=== PATIENT | male | born 1975 | race Caucasian/White ===

== ENCOUNTER 2023-11-08 15:07 | Emergency (ER) | payer SELFPAY ==
[2023-11-08 15:11] VITALS: BP 112/83; PULSE 72; RESP 18; O2SAT 100; BMI 26.6
--- NOTE | 2023-11-08 15:18 | US_ITS ---
The [address] [address] Patient Name: SEBAS GARCIA MRN: [id number] date: 1975 Sex: M Assigned Patient Location: ER Current Patient Location: ER Accession/Order Number: [id number] Exam Date: 11/08/2023 15:20 Report Date: 11/08/2023 16:05 At the request of: BLAS PUGA Procedure: US scrotum EXAM: US scrotum HISTORY: Right testicle swollen, painful COMPARISON: Scrotal ultrasound 11/05/2011. TECHNIQUE: Grayscale and Doppler ultrasound of the scrotum/testicles. FINDINGS: The right testicle is homogeneous in appearance. There is normal Doppler flow. The testicle measures 4 x 2.5 x 2.9 cm. The right epididymis is heterogeneous in appearance. There is a 0.5 cm anechoic epididymal cyst. No increased vascularity of the right epididymis. Right-sided hydrocele and varicocele is present. The left testicle is homogeneous in appearance with normal color flow. The testicle measures 4.1 x 2.7 x 2.3 cm. Varicocele noted. The left epididymis is largely homogeneous in appearance and is without evidence of hypervascularity. US/US scrotum IMPRESSION: No sonographic evidence of torsion. Heterogeneous appearance of the right epididymis could suggest epididymitis. Moderate-sized right hydrocele. Bilateral varicoceles. 5 mm right epididymal cyst. Electronically authenticated by: MICHAEL CLEMONS Date: 11/08/2023 16:05
--- NOTE | 2023-11-08 15:19 | ED_ITS ---
Documented by User: SHIVAM Sauceda 11/08/23 16:14 HPI - Male Genitourinary General Chief complaint: Urogenital-Male Stated complaint: Testicular Pain Time Seen by Provider: 11/08/23 15:08 Source: patient Mode of arrival: walk-in Limitations: no limitations History of Present Illness HPI Narrative: Patient is a 48-year-old male who presents to the emergency department for right testicular swelling and pain that began in the last 2 to 3 days. He denies any mechanism of injury or trauma. He was diagnosed similarly with epididymitis over a year ago for same problem. He has had no fevers or vomiting. He denies any urinary symptoms, no drainage from the scrotum noted. No medications taken prior to arrival. Related Data Previous Rx's ?Medication ?Instructions ?Recorded doxycycline hyclate 100 mg tablet 100 mg PO BID 10 days #20 tabs 11/08/23 hydrocodone 5 mg-acetaminophen 325 1 tab PO Q6H PRN pain 3 days #12 11/08/23 mg tablet tabs ketorolac 10 mg tablet 10 mg PO TID PRN pain #10 tabs 11/08/23 Allergies Allergy/AdvReac Type Severity Reaction Status Date / Time latex Allergy Intermediate Hives Verified 11/08/23 15:11 Review of Systems ROS Constitutional Denies: fever or chills Ears, nose, mouth, and throat Denies: throat pain or nasal congestion Cardiovascular Denies: chest pain Respiratory Denies: shortness of breath or cough Gastrointestinal Denies: nausea or vomiting Musculoskeletal Denies: back pain Integumentary/Breast Denies: rash Neurological Denies: headache Endocrine Denies: excessive urination Hematologic/Lymphatic Denies: easy bruising or easy bleeding Exam Narrative Exam Narrative: Gen.: Awake, alert, in no distress Head: Normocephalic, atraumatic ENT: Moist mucous membranes Respiratory: No respiratory distress Gastrointestinal: Abdomen is soft, nondistended and nontender to palpation : Genital exam performed with Nba Mike RN At bedside throughout the duration of the exam. Patient is circumcised. Right testicle is slightly enlarged compared to the left and tender to palpation. No open wounds, redness or induration noted of the scrotum Extremities: Moves extremities equally Psych: Normal mood and affect Neuro: No focal neuro deficit Skin: Warm, dry, intact Constitutional Vital Signs, click to edit/add: Last Vital Signs Pulse 88 11/08/23 16:18 Resp 18 11/08/23 16:18 BP 118/88 11/08/23 16:18 Pulse Ox 98 11/08/23 16:18 O2 Del Method Room Air 11/08/23 15:11 Course Vital Signs Vital signs: Vital Signs Pulse Rate 72 11/08/23 15:11 Respiratory Rate 18 11/08/23 15:11 Blood Pressure 112/83 11/08/23 15:11 Pulse Oximetry 100 11/08/23 15:11 Oxygen Delivery Method Room Air 11/08/23 15:11 Pulse Rate 88 11/08/23 16:18 Respiratory Rate 18 11/08/23 16:18 Blood Pressure 118/88 11/08/23 16:18 Pulse Oximetry 98 11/08/23 16:18 Oxygen Delivery Method Room Air 11/08/23 15:11 MDM - Male Genitourinary MDM Narrative Medical decision making narrative: Specimen with no evidence of UTI, ultrasound shows no evidence of testicular torsion But the right epididymis has a heterogenous appearance the radiologist feels may represent epididymitis. Patient will be treated for epididymitis with doxycycline for home with a short course of analgesics and anti-inflammatories. Follow-up urology and return to the ER if symptoms change or worsen Medical Records Attestation: I reviewed the patient's medical records. Lab Data Attestation: I reviewed the patient's lab results. Labs: Lab Results 11/08/23 Range/Units 15:21 Urine Color Yellow (YELLOW) Urine Clarity Clear (CLEAR) Urine pH 7.0 (5.0-9.0) Ur Specific [place] 1.020 (1.005-1.025) Urine Protein Negative (NEG/TRACE) mg/dL Urine Glucose (UA) Negative (NEGATIVE) mg/dL Urine Ketones Negative (NEGATIVE) mg/dL Urine Occult Blood Negative (NEGATIVE) Urine Nitrite Negative (NEGATIVE) Urine Bilirubin Negative (NEGATIVE) Urine Urobilinogen 1.0 (0.2-1.0) EU/dL Ur Leukocyte Esterase Negative (NEGATIVE) Imaging Data US - abdomen: Attestation: I have reviewed the pertinent imaging results. Radiologist's impression: ITS Impressions Scrotum Ultrasound 11/08/23 15:18 IMPRESSION: No sonographic evidence of torsion. Heterogeneous appearance of the right epididymis could suggest epididymitis. Moderate-sized right hydrocele. Bilateral varicoceles. 5 mm right epididymal cyst. Electronically authenticated by: MICHAEL CLEMONS Date: 11/08/2023 16:05 Discharge Plan Discharge Stand Alone Forms: Portal Instructions Chief Complaint: Urogenital-Male Clinical Impression: Epididymitis, Pain in right testicle Patient Disposition: Home, Self-Care Time of Disposition Decision: 16:10 Condition: Good Prescriptions / Home Meds: New hydrocodone-acetaminophen 5-325 mg tablet 1 tab PO Q6H PRN (Reason: pain) 3 Days Qty: 12 0RF Rx Instructions: DX: N50.811 ketorolac 10 mg tablet 10 mg PO TID PRN (Reason: pain) Qty: 10 0RF doxycycline hyclate 100 mg tablet 100 mg PO BID 10 Days Qty: 20 0RF Print Language: Cambodian Instructions: Epididymitis (ED) Referrals: Salazar Negron MD [Physician] - 1 week Physician,Non-Staff, [Primary Care Provider] - 1 week Discharge Date/Time: 11/08/23 16:19 Documented by User: Caleb Grant 11/09/23 06:59 HPI - Male Genitourinary General Chief complaint: Urogenital-Male Stated complaint: Testicular Pain Time Seen by Provider: 11/08/23 15:08 Related Data Previous Rx's ?Medication ?Instructions ?Recorded doxycycline hyclate 100 mg tablet 100 mg PO BID 10 days #20 tabs 11/08/23 hydrocodone 5 mg-acetaminophen 325 1 tab PO Q6H PRN pain 3 days #12 11/08/23 mg tablet tabs ketorolac 10 mg tablet 10 mg PO TID PRN pain #10 tabs 11/08/23 Allergies Allergy/AdvReac Type Severity Reaction Status Date / Time latex Allergy Intermediate Hives Verified 11/08/23 15:11 Exam Constitutional Vital Signs, click to edit/add: Last Vital Signs Pulse 88 11/08/23 16:18 Resp 18 11/08/23 16:18 BP 118/88 11/08/23 16:18 Pulse Ox 98 11/08/23 16:18 O2 Del Method Room Air 11/08/23 15:11 Course Vital Signs Vital signs: Vital Signs Pulse Rate 72 11/08/23 15:11 Respiratory Rate 18 11/08/23 15:11 Blood Pressure 112/83 11/08/23 15:11 Pulse Oximetry 100 11/08/23 15:11 Oxygen Delivery Method Room Air 11/08/23 15:11 Pulse Rate 88 11/08/23 16:18 Respiratory Rate 18 11/08/23 16:18 Blood Pressure 118/88 11/08/23 16:18 Pulse Oximetry 98 11/08/23 16:18 Oxygen Delivery Method Room Air 11/08/23 15:11 MDM - Male Genitourinary MDM Narrative Medical decision making narrative: Specimen with no evidence of UTI, ultrasound shows no evidence of testicular torsion But the right epididymis has a heterogenous appearance the radiologist feels may represent epididymitis. Patient will be treated for epididymitis with doxycycline for home with a short course of analgesics and anti-inflammatories. Follow-up urology and return to the ER if symptoms change or worsen For this patient encounter I reviewed the mid-level provider?s documentation, medical decision-making and treatment plan, and I personally spent time with this patient. Shared APC visit, physician attestation: [id number]: The visit was performed by both a physician and an APC. I performed all aspects of MDM as documented. - JHay, DO Lab Data Labs: Lab Results 11/08/23 Range/Units 15:21 Urine Color Yellow (YELLOW) Urine Clarity Clear (CLEAR) Urine pH 7.0 (5.0-9.0) Ur Specific [place] 1.020 (1.005-1.025) Urine Protein Negative (NEG/TRACE) mg/dL Urine Glucose (UA) Negative (NEGATIVE) mg/dL Urine Ketones Negative (NEGATIVE) mg/dL Urine Occult Blood Negative (NEGATIVE) Urine Nitrite Negative (NEGATIVE) Urine Bilirubin Negative (NEGATIVE) Urine Urobilinogen 1.0 (0.2-1.0) EU/dL Ur Leukocyte Esterase Negative (NEGATIVE) Imaging Data US - abdomen: Radiologist's impression: ITS Impressions Scrotum Ultrasound 11/08/23 15:18
[2023-11-08] MEDS: HYDROCODONE/ACET 5-325 MG TABLET 1 TAB PO (15:27)
[2023-11-08 15:35] LABS: Bilirubin Urine NEGATIVE (NEGATIVE); Blood Urine NEGATIVE (NEGATIVE); Clarity Urine CLEAR (CLEAR); Color Urine YELLOW (YELLOW); Glucose Urine UA NEGATIVE (NEGATIVE); Ketones Urine NEGATIVE (NEGATIVE); Leukocyte Esterase Urine NEGATIVE (NEGATIVE); Nitrite Urine NEGATIVE (NEGATIVE); Protein Urine NEGATIVE (NEG/TRACE)
[2023-11-08 15:37] LABS: Urine Microscopic Indicated NO
[2023-11-08 16:18] VITALS: BP 118/88; PULSE 88; RESP 18; O2SAT 98
== END 2023-11-08 16:19 | disposition home or self-care (01) ==
PROVIDERS: Physician Assistant; Emergency Provider Emergency Medicine
DX: N45.1 Epididymitis (principal); N50.3 Cyst of epididymis; I86.1 Scrotal varices; N50.811 Right testicular pain
CPT/HCPCS: 76870; 81003; 99284

== ENCOUNTER 2024-03-19 12:56 | Emergency (ER) | payer OTHER, SELFPAY ==
[2024-03-19 13:01] VITALS: BP 102/74; PULSE 61; TEMP 36.6; O2SAT 98; BMI 26.6
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
== END 2024-03-19 13:41 | disposition home or self-care (01) ==
PROVIDERS: Emergency Provider Student in an Organized Health Care Education/Training Program
DX: T22.012A Burn of unspecified degree of left forearm, initial encounter (principal); X19.XXXA Contact with other heat and hot substances, initial encounter
CPT/HCPCS: 99283

== ENCOUNTER 2024-10-01 16:02 | Emergency (ER) | payer OTHER, SELFPAY ==
[2024-10-01 16:18] VITALS: BP 102/72; PULSE 81; TEMP 36.5; O2SAT 97; BMI 25.8
--- NOTE | 2024-10-01 16:26 | US_ITS ---
[address] [address] Patient Name: SEBAS GARCIA MRN: [id number] date: 1975 Sex: M Assigned Patient Location: ER Current Patient Location: ER Accession/Order Number: [id number] Exam Date: 10/01/2024 16:55 Report Date: 10/01/2024 18:18 At the request of: ERIK RASMUSSEN Procedure: US scrotum doppler SCROTAL ULTRASOUND. HISTORY: Pain. COMPARISON: None. TECHNIQUE: High frequency grayscale and color Doppler sonographic imaging. FINDINGS: Right testis: 3.8 x 2.1 x 2.8 cm. Epididymis: Mildly enlarged epididymis with heterogeneous appearance. There is minimal relative increase color Doppler flow. There is a simple 5 mm cyst. Hydrocele: Small to moderate size hydrocele.. Varicocele None. Masses: None. Vascularity: Normal arterial blood flow. Left testis: 4.2 x 2.3 x 2.7 cm. Epididymis: Normal. Hydrocele: Trace. Varicocele None. Masses: None. Vascularity: Normal arterial blood flow. Additional Findings: There is mild right scrotal wall thickening. US/US scrotum doppler IMPRESSION: 1. Findings are suspicious for right epididymitis. 2. Unremarkable testes. 3. Small to moderate-sized right hydrocele. 4. Mild right scrotal wall thickening, which is nonspecific. Electronically authenticated by: RALPH DIETZ Date: 10/01/2024 18:18
--- OUTSIDE RECORDS SUMMARY | 2024-10-01 16:27 | XMS_ITS | CCD ---
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 [address] [place] [address] 86036 ALP [Catalytic activity/Vol] 80 U/L Normal 39-130 [facility] Comment on above: Performed By: #### C BCA, CMP, 6873-4, #### [facility] ([id number]) [address] [place] [address] 17731 ALT [Catalytic activity/Vol] 16 U/L Normal 0-40 [facility] Comment on above: Performed By: #### C BCA, CMP, 73-4, #### [facility] ([id number]) [address] [place] [address] 95766 Anion gap [Moles/Vol] 9 mmol/L Normal 5-15 [facility] Comment on above: Performed By: #### C BCA, CMP, 6873-4, 07679-1 #### [facility] ([id number]) [address] [place] [address] 14298 AST [Catalytic activity/Vol] 19 U/L Normal 0-41 [facility] Comment on above: Performed By: #### C BCA, CMP, 73-4, 68163-2 #### [facility] ([id number]) [address] [place] [address] 88490 Bilirubin [Mass/Vol] 0.5 mg/dL Normal 0.3-1.2 [facility] Comment on above: Performed By: #### C BCA, CMP, 73-4, #### [facility] ([id number]) [address] [place] [address] 23274 Calcium [Mass/Vol] 9.5 mg/dL Normal 8.5-10.5 [facility] Comment on above: Performed By: #### C NASIM CASTREJON, 6873-4, 87535-9 #### [facility] ([id number]) [address] [place] [address] 26017 Chloride [Moles/Vol] 106 mmol/L Normal 98-109 [facility] Comment on above: Performed By: #### C NASIM CASTREJON, 73-, 04221-2 #### [facility] ([id number]) [address] [place] [address] 37108 CO2 [Moles/Vol] 26 mmol/L Normal 22-32 [facility] Comment on above: Performed By: #### C NASIM CASTRJEON, 6872-11, 75750-8 #### [facility] ([id number]) [address] [place] [address] 84845 Creatinine [Mass/Vol] 0.96 mg/dL Normal 0.70-1.20 [facility] Comment on above: Result Comment: METH OD TRACEABLE TO IDMS STANDARD Performed By: #### C NASIM CASTREJON, 73-4, 28073-2 #### [facility] ([id number]) [address] [place] [address] 80274 eGFR (CKD-EPI) NON-RACE DEPENDENT >90 Normal >59 [facility] Comment on above: Result Comment: Reported eGFR is based on the CKD-EPI 2020 equation that does not use a race coefficient. Performed By: #### C NASIM CASTREJON, 6873-4, 81838-9 #### [facility] ([id number]) [address] [place] [address] 39222 Glucose [Mass/Vol] 165 mg/dL High 65-99 [facility] Comment on above: Performed By: #### C NASIM CASTREJON, 73-, 55850-3 #### [facility] ([id number]) [address] [place] [address] 59053 Potassium [Moles/Vol] 4.1 mmol/L Normal 3.5-5.0 [facility] Comment on above: Performed By: #### C NASIM CASTREJON, 73, 11996-3 #### [facility] ([id number]) [address] [place] [address] 05010 Protein [Mass/Vol] 5.9 g/dL Low 6.0-8.0 [facility] Comment on above: Performed By: #### C NASIM CASTREJON, 6872-11, 61280-4 #### [facility] ([id number]) [address] [place] [address] 89519 Sodium [Moles/Vol] 141 mmol/L Normal 134-146 [facility] Comment on above: Performed By: #### C NASIM CASTREJON, 6872-11, 65334-0 #### [facility] ([id number]) [address] [place] [address] 21924 Urea nitrogen [Mass/Vol] 15 mg/dL Normal 5-23 [facility] Comment on above: Performed By: #### C NASIM CASTREJON, 73, 07734-2 #### [facility] ([id number]) [address] [place] [address] 08360 Glucose Glucometer (BldC) [M ass/Vol]on 11-16-2023 Glucose [Mass/Vol] 158 mg/dL High 65-99 [facility] MAGNESIUMon 11-16-2023 Magnesium [Mass/Vol] 1.5 mg/dL Low 1.8-2.6 [facility] Comment on above: Performed By: #### C NASIM CASTREJON, 6873-, 30988-0 #### [facility] ([id number]) [address] [place] [address] [place] [address] BASIC METABOLIC PANLon 11-14 Anion gap [Moles/Vol] 6 mmol/L Normal 5-15 [facility] Comment on above: Performed By: #### C CASH CMP, 6873-4, 60752-9 #### [facility] ([id number]) [address] [place] [address] 83382 Calcium [Mass/Vol] 9.1 mg/dL Normal 8.5-10.5 [facility] Comment on above: Performed By: #### C CASH, CMP, 73-, 43437-6 #### [facility] ([id number]) [address] [place] [address] 47550 Chloride [Moles/Vol] 110 mmol/L High 98-109 [facility] Comment on above: Performed By: #### C CASH CMP, 73, 49019-5 #### [facility] ([id number]) [address] [place] [address] 81977 CO2 [Moles/Vol] 25 mmol/L Normal 22-32 [facility] Comment on above: Performed By: #### C CASH, CMP, 73-, 53593-9 #### [facility] ([id number]) [address] [place] [address] 85792 Creatinine [Mass/Vol] 1.04 mg/dL Normal 0.70-1.20 [facility] Comment on above: Result Comment: METH OD TRACEABLE TO IDMS STANDARD Performed By: #### C CASH, CMP, 6873-4, 46609-9 #### [facility] ([id number]) [address] [place] [address] 98025 GFR/1.73 sq M.predicted among non-blacks MDRD (S/P/Bld) [Vol rate/Area] 89 mL/min/{1.73_m2} Normal >59 [facility] Comment on above: Result Comment: Reported eGFR is based on the CKD-EPI 2020 equation that does not use a race coefficient. Performed By: #### C NASIM CASTREJON, 6873-, 94305-8 #### [facility] ([id number]) [address] [place] [address] 48155 Glucose [Mass/Vol] 95 mg/dL Normal 65-99 [facility] Comment on above: Performed By: #### C NASIM CASTREJON, 73-, #### [facility] ([id number]) [address] [place] [address] 83645 Potassium [Moles/Vol] 3.7 mmol/L Normal 3.5-5.0 [facility] Comment on above: Performed By: #### C NASIM CASTREJON, 73, #### [facility] ([id number]) [address] [place] [address] 49345 Sodium [Moles/Vol] 141 mmol/L Normal 134-146 [facility] Comment on above: Performed By: #### C NASIM CASTREJON, 73, 05944-9 #### [facility] ([id number]) [address] [place] [address] 46992 Urea nitrogen [Mass/Vol] 13 mg/dL Normal 5-23 [facility] Comment on above: Performed By: #### C NASIM CASTREJON, 73-, 02459-3 #### [facility] ([id number]) [address] [place] [address] 45789 CBC AND AUTO DIFFon 11-15-19 24 ABSOLUTE BASOPHIL 0.1 X10E9/L Normal 0.0-0.2 [facility] Comment on above: Performed By: #### N UM #### [facility] ([id number]) [address] [place] [address] 04407 ABSOLUTE NEUTROPHIL 6.7 X10E9/L High 1.5-6.6 [facility] Comment on above: Performed By: #### N UM #### [facility] ([id number]) [address] [place] [address] 07738 Basophils/100 WBC (Bld) 0.6 % Normal [facility] Comment on above: Performed By: #### N UM #### [facility] ([id number]) [address] [place] [address] 31929 Eosinophils (Bld) [#/Vol] 0.4 10*3/uL Normal 0.0-0.4 [facility] Comment on above: Performed By: #### N UM #### [facility] ([id number]) [address] [place] [address] 95868 Eosinophils/100 WBC (Bld) 3.5 % Normal [facility] Comment on above: Performed By: #### N UM #### [facility] ([id number]) [address] [place] [address] 29818 Erythrocyte distribution width (RBC) [Ratio] 14.1 % Normal 11.5-15.0 [facility] Comment on above: Performed By: #### N UM #### [facility] ([id number]) [address] [place] [address] 37477 Hematocrit (Bld) [Volume fraction] 42.2 % Normal 39-49 [facility] Comment on above: Performed By: #### N UM #### [facility] ([id number]) [address] [place] [address] 38744 Hemoglobin (Bld) [Mass/Vol] 14.2 g/dL Normal 13.0-17.0 [facility] Comment on above: Performed By: #### N UM #### [facility] ([id number]) [address] [place] [address] 78783 Lymphocytes (Bld) [#/Vol] 3.2 10*3/uL Normal 1.0-3.5 [facility] Comment on above: Performed By: #### N UM #### [facility] ([id number]) [address] [place] [address] 33617 Lymphocytes/100 WBC (Bld) 28.5 % Normal [facility] Comment on above: Performed By: #### N UM #### [facility] ([id number]) [address] [place] [address] 23853 MCH (RBC) [Entitic mass] 29.8 pg Normal 27-34 [facility] Comment on above: Performed By: #### N UM #### [facility] ([id number]) [address] [place] [address] 09450 MCHC (RBC) [Mass/Vol] 33.6 g/dL Normal 32-36 [facility] Comment on above: Performed By: #### N UM #### [facility] ([id number]) [address] [place] [address] 47389 MCV (RBC) [Entitic vol] 89 fL Normal 80-100 [facility] Comment on above: Performed By: #### N UM #### [facility] ([id number]) [address] [place] [address] 54222 Monocytes (Bld) [#/Vol] 1.0 10*3/uL High 0-0.9 [facility] Comment on above: Performed By: #### N UM #### [facility] ([id number]) [address] [place] [address] 37288 Monocytes/100 WBC (Bld) 8.5 % Normal [facility] Comment on above: Performed By: #### N UM #### [facility] ([id number]) [address] [place] [address] 95282 Neutrophils/100 WBC (Bld) 58.9 % Normal [facility] Comment on above: Performed By: #### N UM #### [facility] ([id number]) [address] [place] [address] 95780 Platelet mean volume (Bld) [Entitic vol] 8.1 fL Normal 7-12 [facility] Comment on above: Performed By: #### N UM #### [facility] ([id number]) [address] [place] [address] 04677 Platelets (Bld) [#/Vol] 268 10*3/uL Normal 150-450 [facility] Comment on above: Performed By: #### N UM #### [facility] ([id number]) [address] [place] [address] 52830 RBC COUNT 4.76 X10E12/L Normal 4.10-5.70 [facility] Comment on above: Performed By: #### N UM #### [facility] ([id number]) [address] [place] [address] 38404 WBC (Bld) [#/Vol] 11.4 10*3/uL High 4.0-11.0 [facility] Comment on above: Performed By: #### N UM #### [facility] ([id number]) [address] [place] [address] BRAIN WO CONT STROKE ALER Ton 11-15-2023 CT BRAIN WO CONT STROKE ALERT CT BRAIN WO CONT STROKE ALERT History: Left-sided weakness and facial tear. Suspected acute stroke. NONCONTRAST HEAD CT Comparison: 09/24/2007 Findings: There is no evidence of recent hemorrhage or other acute intracranial abnormalities. No other focal intracranial findings of any nature are depicted. Ventricles and CSF spaces are bilaterally symmetric and within normal limits. Feliciano-white matter differentiation is normal throughout. No abnormalities are displayed on bone windows. IMPRESSION: Normal noncontrast head CT. All CT scans at this facility use dose modulation, iterative reconstruction, and/or weight based dosing when appropriate to reduce radiation dose to as low as reasonably achievable. 6 Finalized by Ilya Sharma MD on 11/15/2023 8:13 AM Normal [facility] CT CTA ABD AND PELVISon 10-19 CT CTA ABD AND PELVIS CT CTA ABD AND PELVIS History: Chest pain. Concern with possible aortic dissection, aneurysm. Exam/Technique: CTA of the abdomen, and pelvis. Volume rendered 3D maximum intensity projection reconstructions constructed under concurrent physician supervision on a independent workstation and reviewed for purposes of evaluation of the abdominal aorta and its branches. Comparison: 06/29/2021 contrast-enhanced CT of the abdomen and pelvis Findings: No evidence of dissection of the abdominal aorta or iliac arteries. The abdominal aorta is of normal caliber throughout its length with mild atherosclerotic plaquing in the infrarenal aorta, but no evidence of focal stenoses or aneurysms. Both common and external iliac arteries, and both common femoral arteries are of normal caliber throughout without significant focal stenoses or aneurysms. There is good flow through the celiac axis and SMA and their branches without focal stenoses. A patent PHIL is demonstrated. A single good caliber renal artery supplies each kidney without evidence of focal stenoses. Minor anatomic variant with a small accessory left hepatic artery arising directly from the abdominal aorta No active pulmonary disease is displayed in the lung bases. No significant abnormalities are displayed in the liver, spleen, pancreas, adrenal glands, or kidneys. Status post cholecystectomy, unchanged. No gross abnormalities of the urinary bladder are displayed. IMPRESSION: No acute abnormalities demonstrated. [address] scans at this facility use dose modulation, iterative reconstruction, and/or weight based dosing when appropriate to reduce radiation dose to as low as reasonably achievable. 6 Finalized by Ilya Sharma MD on 11/15/2023 8:50 AM Normal [facility] CT CTA CAROTIDon 11-15-[address] CTA CAROTID CTA carotids History: Left-sided weakness, facial droop, TIA Contrast: 100 mL Omnipaque 350 Comparison: None Technique: CT angiogram performed following intravenous administration of nonionic intravenous contrast. Coronal and sagittal and 3-D volume rendered maximum intensity projection images generated and reviewed under concurrent physician supervision. Automated exposure control utilized. The [place] Symptomatic Carotid Endarterectomy Trial (NASCET) method for a calculated in the degree of stenosis was utilized for stenosis measurements. Findings: Visible portion of the thoracic aorta is normal in caliber with no atherosclerotic disease. Typical 3 vessel arch with no ostial stenosis of the great vessels. The right common, internal and external carotid arteries are patent with no aneurysm, dissection or hemodynamically significant stenosis. No significant atherosclerotic disease. The left common, internal and external carotid arteries are patent with no aneurysm, dissection or hemodynamically significant stenosis. No significant atherosclerotic disease. The vertebral arteries are codominant. Both vertebral arteries are patent with no aneurysm, large vessel dissection or significant stenosis. No significant atherosclerotic disease. IMPRESSION: 1. No acute vascular abnormality or significant stenosis by NASCET criteria. All CT scans at this facility use dose modulation, iterative reconstruction, and/or weight based dosing when appropriate to reduce radiation dose to as low as reasonably achievable. 5 Finalized by Pranav Lynn MD on 11/15/2023 8:31 AM Normal [facility] CT CTA CHESTon 11-15-[address] CTA CHEST History: Chest pain. Suspected acute aortic syndrome/dissection Exam/Technique: CTA imaging of the chest is performed with bolus IV contrast with multiplanar reconstructions provided. Volume rendered 3 -D Maximum intensity projection reconstructions constructed under concurrent physician supervision on an independent workstation and reviewed for purposes of evaluation of the thoracic aorta Comparison: None Findings: No pulmonary emboli demonstrated. The thoracic aorta appears normal. No coronary artery calcification is demonstrated and the heart size appears normal. . No hilar or mediastinal mass lesions or other significant mediastinal abnormalities are displayed. There is no evidence of infiltrates, noncalcified nodules, or other active pulmonary disease. No pleural abnormalities are demonstrated. No abnormalities are displayed in the portions of upper abdominal organs included. IMPRESSION: Normal contrast enhanced chest CT, with no evidence of thoracic aorta abnormalities, or other acute abnormalities. All CT scans at this facility use dose modulation, iterative reconstruction, and/or weight based dosing when appropriate to reduce radiation dose to as low as reasonably achievable. 6 Finalized by Ilya Sharma MD on 11/15/2023 8:45 AM Normal [facility] CT CTA HEADon 11-15-[address] CT[address] HEAD CT angiogram of the head, 11/15/2023 Clinical History: Left-sided weakness, facial droop, TIA Comparison: CT brain 11/15/2023 Contrast: 100 mL Omnipaque 350 Technique: Multidetector CT angiogram performed through the [place] using 3D reconstructions and source images displayed on a PACS workstation and reviewed by the radiologist. Automatic exposure control (AEC) was utilized. Arterial blood flow was measured to assist the stroke clinical team in the diagnosis of large vessel occlusion in patients undergoing screening for acute ischemic stroke using Rapid AI software when clinically indicated. Findings: The bilateral intracranial internal carotid arteries are patent with no aneurysm, dissection or hemodynamically significant stenosis. No significant atherosclerotic disease. Bilateral anterior and middle cerebral arteries are patent with no aneurysm or significant stenosis demonstrated. Bilateral vertebral arteries and basilar artery are patent with no aneurysm, dissection or significant stenosis. Bilateral posterior cerebral arteries are patent with no aneurysm or significant stenosis. Patent bilateral posterior communicating arteries are patent. Dural venous sinuses are patent. No vascular malformation. No pathologic contrast enhancement. IMPRESSION: 1. No acute vascular abnormality. All CT scans at this facility use dose modulation, iterative reconstruction, and/or weight based dosing when appropriate to reduce radiation dose to as low as reasonably achievable. 5 Finalized by Pranav Lynn MD on 11/15/2023 8:46 AM Normal [facility] ETHANOLon 11-15-2023 Ethanol [Mass/Vol] mg/dL Normal 0.00-0.08 [facility] Comment on above: Result Comment: This report is intended for use in clinical monitoring or management of patients. Performed By: #### C NASIM CASTREJON, 6873-4, 30436-2 #### [facility] ([id number]) [address] [place] [address] 35956 Glucose Glucometer (BldC) [M ass/Vol]on 11-15-2023 Glucose [Mass/Vol] 94 mg/dL Normal 65-99 [facility] Glucose [Mass/Vol] 68 mg/dL Normal 65-99 [facility] Glucose [Mass/Vol] 110 mg/dL High 65-99 [facility] HGB A1C (GLYCO-HGB)on 2023 Glucose [Mass/Vol] 192 mg/dL Normal [facility] Comment on above: Performed By: #### C NASIM CASTREJON, 6873-49 #### [facility] ([id number]) [address] [place] [address] 63564 HbA1c (Bld) [Mass fraction] 8.3 % High 4.4-5.6 [facility] Comment on above: Result Comment: NOTE ADA Guidelines Result HgbA1c Normal : less than 5.7 % Prediabetes : 5.7 % to 6.4 % Diabetes : > 6.4 % Use with caution in patients with abnormal hemoglobin variants as the half-life of red blood cells and in vivo glycation rates are affected. Performed By: #### C NASIM CASTREJON, 68739 #### [facility] ([id number]) [address] [place] [address] 49531 LIVER PANELon 11-15-2023 Albumin [Mass/Vol] 3.9 g/dL Normal 3.2-5.3 [facility] Comment on above: Performed By: #### C NASIM CASTREJON, 739 #### [facility] ([id number]) [address] [place] [address] 35444 ALP [Catalytic activity/Vol] 88 U/L Normal 39-130 [facility] Comment on above: Performed By: #### C NASIM CASTREJON, 739 #### [facility] ([id number]) [address] [place] [address] 02733 ALT [Catalytic activity/Vol] 19 U/L Normal 0-40 [facility] Comment on above: Performed By: #### C CASH CMP, 6873-49 #### [facility] ([id number]) [address] [place] [address] 62830 AST [Catalytic activity/Vol] 21 U/L Normal 0-41 [facility] Comment on above: Performed By: #### C CASH, CMP, 6873-4, 36862-5 #### [facility] ([id number]) [address] [place] [address] 83246 Bilirubin [Mass/Vol] 0.9 mg/dL Normal 0.3-1.2 [facility] Comment on above: Performed By: #### C CASH, CMP, 6873-, 33458-3 #### [facility] ([id number]) [address] [place] [address] 42791 Bilirubin.direct [Mass/Vol] 0.1 mg/dL Normal 0.0-0.4 [facility] Comment on above: Performed By: #### C CASH, CMP, 73, 66303-4 #### [facility] ([id number]) [address] [place] [address] 78457 Protein [Mass/Vol] 6.7 g/dL Normal 6.0-8.0 [facility] Comment on above: Performed By: #### C CASH, CMP, 734, 28997-3 #### [facility] ([id number]) [address] [place] [address] 46630 Lactate (P traci) [Moles/Vol]o n 11-15-2023 LACTATE W/REFLEX 1.7 mmol/L Normal 0.4-2.0 [facility] Comment on above: Result Comment: Result did not trigger repeat Lactate, re-order if needed. Performed By: #### C CASH, CMP, 6873-4, 75801-2 #### [facility] ([id number]) [address] [place] [address] 67772 Lipid 1996 panelon 4 Cholesterol [Mass/Vol] 109 mg/dL Low 150-200 Pr [facility] Comment on above: Performed By: #### C BCA, CMP, 6873-4, 26776-2 #### [facility] ([id number]) [address] [place] [address] 66663 Cholesterol in HDL [Mass/Vol] 42 mg/dL Normal >39 [facility] Comment on above: Result Comment: HDL <40 mg/dL - High Risk HDL > or = 40mg/dL- Desirable HDL >60 mg/dL - Negative Risk Performed By: #### C CASH, CMP, 6873-4, 43155-2 #### [facility] ([id number]) [address] [place] [address] 78753 Cholesterol in LDL [Mass/Vol] 52 mg/dL Normal <130 [facility] Comment on above: Result Comment: LDL <100 mg/dL - Desirable LDL >160 mg/dL - High Risk Performed By: #### Kay CASTREJON CMP, 6873-4, 05561-9 #### [facility] ([id number]) [address] [place] [address] 07004 Cholesterol in VLDL [Mass/Vol] 15 mg/dL Normal 0-30 [facility] Comment on above: Performed By: #### Kay CASTREJON CMP, 6873-4, 64997-5 #### [facility] ([id number]) [address] [place] [address] 96620 CHOLESTEROL:HDL 2.6 Normal 1.0-5.0 [facility] Comment on above: Performed By: #### Kay CASTREJON CMP, 6873-4, 55154-8 #### [facility] ([id number]) [address] [place] [address] 24809 Triglyceride [Mass/Vol] 77 mg/dL Normal 27-150 [facility] Comment on above: Performed By: #### C [facility], [facility], 6873-4, 40024-5 #### [facility] ([id number]) [address] [place] [address] 03424 MR BRAIN W WO CONTon 024 MR BRAIN W WO CONT MR BRAIN W WO CONT Clinical history: Left-sided weakness. TIA. TECHNIQUE: Multiplanar multisequence imaging of the brain was performed before and after the intravenous administration of 16.8 mL ProHance gadolinium contrast material. COMPARISON: There are no prior MRIs for comparison. Unenhanced CT of the brain 11/15/2023 is available. FINDINGS: There are multiple punctate and patchy foci of increased signal intensity on the T2 and FLAIR images within subcortical and to a lesser extent periventricular white matter of the supratentorial brain. These findings are nonspecific. Brain otherwise appears within normal limits in morphology and signal characteristics. There is no intracranial mass nor mass effect. Ventricular system appears within normal limits. There is no restricted diffusion to suggest acute nor subacute infarct. There are no signal abnormalities present to suggest parenchymal nor extra-axial hemorrhage. There is no pathologic parenchymal nor leptomeningeal gadolinium enhancement. IMPRESSION: 1. No intracranial mass, hemorrhage, infarct, nor other acute finding. 2. Small white matter lesions throughout the supratentorial brain are nonspecific. Findings may reflect sequelae of microvascular ischemia. Other etiologies such as migrainous change, demyelinating disease, or vasculitis not excluded. 5 Finalized by Pj Wilson MD on 11/15/2023 12:11 PM Normal [facility] PROTIME AND INRon 11-15-2023 INR Coag (PPP) [Relative time] 1.0 {INR} Normal 0.8-1.1 [facility] Comment on above: Performed By: #### N UM #### [facility] ([id number]) [address] [place] [address] 57767 PT Coag (PPP) [Time] 11.7 s Normal 9.8-13.2 [facility] Comment on above: Result Comment: NEW REFERENCE RANGE Performed By: #### N UM #### [facility] ([id number]) [address] [place] [address] 66288 THYROID PROFILEon 11-15-2023 Free T4 [Mass/Vol] 1.02 ng/dL Normal 0.61-1.60 [facility] Comment on above: Performed By: #### C CASH CMP, 6873-4, 09534-3 #### [facility] ([id number]) [address] [place] [address] 29921 TSH 1.53 uIU/mL Normal 0.49-4.67 [facility] Comment on above: Performed By: #### C CASH CMP, 73-4, 07843-3 #### [facility] ([id number]) [address] [place] [address] 21886 TROPONIN Ion 11-15-2023 Troponin I.cardiac [Mass/Vol] 0.01 ng/mL Normal 0.00-0.04 [facility] Comment on above: Performed By: #### C CASH CMP, 73-4, 70984-0 #### [facility] ([id number]) [address] [place] [address] 41320 Troponin I.cardiac [Mass/Vol] ng/mL Normal 0.00-0.04 [facility] Comment on above: Performed By: #### Kay CASTREJON CMP, 73-4, 77913-3 #### [facility] ([id number]) [address] [place] [address] 30135 Troponin I.cardiac [Mass/Vol] 0.02 ng/mL Normal 0.00-0.04 [facility] Comment on above: Performed By: #### Kay CASTREJON, CMP, 6873-, 99186-1 #### [facility] ([id number]) [address] [place] [address] 54633 aPTT Coag (PPP) [Time]on aPTT Coag (Bld) [Time] 32 s Normal 26-37 [facility] Comment on above: Result Comment: NEW REFERENCE RANGE Performed By: #### N UM #### [facility] ([id number]) [address] [place] [address] 55609 BASIC METABOLIC PANLon 11-06 Anion gap [Moles/Vol] 4 mmol/L Low 5-15 [facility] Comment on above: Performed By: #### N UM #### [facility] ([id number]) [address] [place] [address] 56336 Calcium [Mass/Vol] 9.5 mg/dL Normal 8.5-10.5 [facility] Comment on above: Performed By: #### N UM #### [facility] ([id number]) [address] [place] [address] 72453 Chloride [Moles/Vol] 108 mmol/L Normal 98-109 [facility] Comment on above: Performed By: #### N UM #### [facility] ([id number]) [address] [place] [address] 30023 CO2 [Moles/Vol] 28 mmol/L Normal 22-32 [facility] Comment on above: Performed By: #### N UM #### [facility] ([id number]) [address] [place] [address] 15395 Creatinine [Mass/Vol] 0.95 mg/dL Normal 0.70-1.20 [facility] Comment on above: Result Comment: METH OD TRACEABLE TO IDMS STANDARD Performed By: #### N UM #### [facility] ([id number]) [address] [place] [address] 43488 eGFR (CKD-EPI) NON-RACE DEPENDENT >90 Normal >59 [facility] Comment on above: Result Comment: Reported eGFR is based on the CKD-EPI 2020 equation that does not use a race coefficient. Performed By: #### N UM #### [facility] ([id number]) [address] [place] [address] 92087 Glucose [Mass/Vol] 81 mg/dL Normal 65-99 [facility] Comment on above: Performed By: #### N UM #### [facility] ([id number]) [address] [place] [address] 07795 Potassium [Moles/Vol] 3.8 mmol/L Normal 3.5-5.0 [facility] Comment on above: Performed By: #### N UM #### [facility] ([id number]) [address] [place] [address] 31014 Sodium [Moles/Vol] 140 mmol/L Normal 134-146 [facility] Comment on above: Performed By: #### N UM #### [facility] ([id number]) [address] [place] [address] 91430 Urea nitrogen [Mass/Vol] 13 mg/dL Normal 5-23 [facility] Comment on above: Performed By: #### N UM #### [facility] ([id number]) [address] [place] [address] 84145 CBC AND AUTO DIFFon 11-07-19 24 ABSOLUTE BASOPHIL 0.1 X10E9/L Normal 0.0-0.2 [facility] Comment on above: Performed By: #### N UM #### [facility] ([id number]) [address] [place] [address] 53971 ABSOLUTE NEUTROPHIL 4.8 X10E9/L Normal 1.5-6.6 [facility] Comment on above: Performed By: #### N UM #### [facility] ([id number]) [address] [place] [address] 33305 Basophils/100 WBC (Bld) 1.0 % Normal [facility] Comment on above: Performed By: #### N UM #### [facility] ([id number]) [address] [place] [address] 27555 Eosinophils (Bld) [#/Vol] 0.3 10*3/uL Normal 0.0-0.4 [facility] Comment on above: Performed By: #### N UM #### [facility] ([id number]) [address] [place] [address] 00198 Eosinophils/100 WBC (Bld) 3.1 % Normal [facility] Comment on above: Performed By: #### N UM #### [facility] ([id number]) [address] [place] [address] 50016 Erythrocyte distribution width (RBC) [Ratio] 13.7 % Normal 11.5-15.0 [facility] Comment on above: Performed By: #### N UM #### [facility] ([id number]) [address] [place] [address] 98760 Hematocrit (Bld) [Volume fraction] 42.1 % Normal 39-49 [facility] Comment on above: Performed By: #### N UM #### [facility] ([id number]) [address] [place] [address] 38914 Hemoglobin (Bld) [Mass/Vol] 14.1 g/dL Normal 13.0-17.0 [facility] Comment on above: Performed By: #### N UM #### [facility] ([id number]) [address] [place] [address] 41914 Lymphocytes (Bld) [#/Vol] 2.7 10*3/uL Normal 1.0-3.5 [facility] Comment on above: Performed By: #### N UM #### [facility] ([id number]) [address] [place] [address] 23207 Lymphocytes/100 WBC (Bld) 31.1 % Normal [facility] Comment on above: Performed By: #### N UM #### [facility] ([id number]) [address] [place] [address] 44344 MCH (RBC) [Entitic mass] 29.9 pg Normal 27-34 [facility] Comment on above: Performed By: #### N UM #### [facility] ([id number]) [address] [place] [address] 94522 MCHC (RBC) [Mass/Vol] 33.6 g/dL Normal 32-36 [facility] Comment on above: Performed By: #### N UM #### [facility] ([id number]) [address] [place] [address] 31920 MCV (RBC) [Entitic vol] 89 fL Normal 80-100 [facility] Comment on above: Performed By: #### N UM #### [facility] ([id number]) [address] [place] [address] 75277 Monocytes (Bld) [#/Vol] 0.7 10*3/uL Normal 0-0.9 [facility] Comment on above: Performed By: #### N UM #### [facility] ([id number]) [address] [place] [address] 21089 Monocytes/100 WBC (Bld) 8.5 % Normal [facility] Comment on above: Performed By: #### N UM #### [facility] ([id number]) [address] [place] [address] 34928 Neutrophils/100 WBC (Bld) 56.3 % Normal [facility] Comment on above: Performed By: #### N UM #### [facility] ([id number]) [address] [place] [address] 99145 Platelet mean volume (Bld) [Entitic vol] 7.9 fL Normal 7-12 [facility] Comment on above: Performed By: #### N UM #### [facility] ([id number]) [address] [place] [address] 02162 Platelets (Bld) [#/Vol] 262 10*3/uL Normal 150-450 [facility] Comment on above: Performed By: #### N UM #### [facility] ([id number]) [address] [place] [address] 91652 RBC COUNT 4.73 X10E12/L Normal 4.10-5.70 [facility] Comment on above: Performed By: #### N UM #### [facility] ([id number]) [address] [place] [address] 65690 WBC (Bld) [#/Vol] 8.5 10*3/uL Normal 4.0-11.0 [facility] Comment on above: Performed By: #### N UM #### [facility] ([id number]) [address] [place] [address] 28685 CHLAMYDIA/GC PCR, Uon 2023 CHLAMYDIA/GC PCR, U SPECIMEN SOURCE CLEAN CATCH MIDSTREAM URINE CHLAMYDIA DNA(PCR) Negative (qualifier value) Chlamydia trachomatis not detected by nucleic acid amplification. This does not exclude the possibility of infection because results are dependent on adequate specimen collection. GONORRHOEAE DNA(PCR) Negative (qualifier value) Neisseria gonorrhoeae not detected by nucleic acid amplification. This does not exclude the possibility of infection because results are dependent on adequate specimen collection. Normal [facility] Comment on above: Performed By: #### N UM #### [facility] ([id number]) [address] [place] [address] 35108 URINE CULTUREon 11-07-2023 Bacteria identified Cx Nom (U) CULTURE RESULTS <10,000 ORGANISMS/ML NORMAL URO GENITAL LENNOX Normal [facility] Comment on above: Performed By: #### N UM #### [facility] ([id number]) [address] [place] [address] 11062 URN MACROSCOPIC NURon 2023 BILIRUBIN ESTEFANY Negative Normal NEG [facility] Comment on above: Performed By: #### N UM #### [facility] ([id number]) [address] [place] [address] [place] [address] BLOOD/HGB ESTEFANY Negative Normal NEG [facility] Comment on above: Performed By: #### N UM #### [facility] ([id number]) [address] [place] [address] [place] [address] GLUCOSE ESTEFANY Negative Normal NEG [facility] Comment on above: Performed By: #### N UM #### [facility] ([id number]) [address] [place] [address] [place] [address] KETONES ESTEFANY Negative Normal NEG [facility] Comment on above: Performed By: #### N UM #### [facility] ([id number]) [address] [place] [address] [place] [address] LEUKOCYTE ESTERASE ESTEFANY Negative Normal NEG [facility] Comment on above: Performed By: #### N UM #### [facility] ([id number]) [address] [place] [address] [place] [address] NITRITE ESTEFANY Negative Normal NEG [facility] Comment on above: Performed By: #### N UM #### [facility] ([id number]) [address] [place] [address] 57902 PH ESTEFANY 7.0 Normal 5.0-8.5 [facility] Comment on above: Performed By: #### N UM #### [facility] ([id number]) [address] [place] [address] 57970 PROTEIN ESTEFANY Negative Normal NEG [facility] Comment on above: Performed By: #### N UM #### [facility] ([id number]) [address] [place] [address] [place] [address] SPECIFIC GRAVITY ESTEFANY 1.020 Normal 1.003-1.035 [facility] Comment on above: Performed By: #### N UM #### [facility] ([id number]) [address] [place] [address] 54329 UROBILINOGEN ESTEFANY 1.0 eu/dL Normal <1.1 [facility] Comment on above: Performed By: #### N UM #### [facility] ([id number]) [address] [place] [address] 87514 US SCROTUM WITH DUPLEXon US SCROTUM WITH DUPLEX US SCROTUM WITH DUPLEX CLINICAL INFORMATION: right testicular pain/swelling. TECHNIQUE: Real-time sonographic evaluation of the scrotum and testes was performed with feliciano scale and color flow imaging. Real time feliciano scale, color flow imaging and duplex spectral Doppler waveform analysis evaluation was performed of the major arterial inflow and venous outflow structures of the testicles with arterial and venous spectral waveforms obtained and reviewed in view of the clinical history of right testicular pain/swelling . Duplex spectral Doppler document arterial and venous spectral waveforms documented within the major arterial inflow and venous outflow of both testicles. Arterial and venous Doppler duplex spectral waveforms were evaluated. COMPARISON: No relevant prior studies available. FINDINGS: Right testicle 3.9 x 2.7 x 2.7 cm. Imaging is echotexture. Moderate hydrocele. Small 5 mm epididymal head cyst. The epididymis is otherwise unremarkable. Left testicle 4.3 x 2.5 x 2.6 cm. Homogeneous echotexture. Small hydrocele. Epididymis is within normal limits. The arterial and venous waveforms are within normal limits. IMPRESSION: * No evidence for epididymal orchitis or torsion. * Small left, moderate right hydrocele. 4 Finalized by Gio Romero MD on 11/07/2023 5:10 PM Normal [facility] Beta hydroxybutyrate [Moles/ Vol]on 08-29-2023 BetaHydroxybutyrate 2.30 mmol/L High 0.02-0.27 [facility] Comment on above: Performed By: #### C BCA, CMP, 6873-4, 61616-3 #### [facility] ([id number]) [address] [place] [address] 74835 CBC AND AUTO DIFFon 08-29-19 ABSOLUTE BASOPHIL 0.1 X10E9/L Normal 0.0-0.2 [facility] Comment on above: Performed By: #### C BCA, CMP, 73-4, 59926-0 #### [facility] ([id number]) [address] [place] [address] 93369 ABSOLUTE NEUTROPHIL 5.4 X10E9/L Normal 1.5-6.6 [facility] Comment on above: Performed By: #### C CASH, CMP, 6872-, #### [facility] ([id number]) [address] [place] [address] 10671 Basophils/100 WBC (Bld) 1.1 % Normal [facility] Comment on above: Performed By: #### Kay BCA, CMP, 6872-11, #### [facility] ([id number]) [address] [place] [address] 59508 Eosinophils (Bld) [#/Vol] 0.1 10*3/uL Normal 0.0-0.4 [facility] Comment on above: Performed By: #### Kay BCA, CMP, 6872-11, 68828-1 #### [facility] ([id number]) [address] [place] [address] 54632 Eosinophils/100 WBC (Bld) 1.1 % Normal [facility] Comment on above: Performed By: #### C BCA, CMP, 6872-11, #### [facility] ([id number]) [address] [place] [address] 22514 Erythrocyte distribution width (RBC) [Ratio] 13.0 % Normal 11.5-15.0 [facility] Comment on above: Performed By: #### C BCA, CMP, 6872-11, #### [facility] ([id number]) [address] [place] [address] 45191 Hematocrit (Bld) [Volume fraction] 45.3 % Normal 39-49 [facility] Comment on above: Performed By: #### C CASH CMP, 6872-11, #### [facility] ([id number]) [address] [place] [address] 36319 Hemoglobin (Bld) [Mass/Vol] 15.9 g/dL Normal 13.0-17.0 [facility] Comment on above: Performed By: #### C NASIM CASTREJON, 6872-11, #### [facility] ([id number]) [address] [place] [address] 60599 Lymphocytes (Bld) [#/Vol] 3.8 10*3/uL High 1.0-3.5 [facility] Comment on above: Performed By: #### C CASH, CMP, 6872-11, #### [facility] ([id number]) [address] [place] [address] 25327 Lymphocytes/100 WBC (Bld) 37.6 % Normal [facility] Comment on above: Performed By: #### Kay CASTREJON CMP, 6872-11, #### [facility] ([id number]) [address] [place] [address] 21013 MCH (RBC) [Entitic mass] 30.7 pg Normal 27-34 [facility] Comment on above: Performed By: #### C CASH CMP, 6872-11, #### [facility] ([id number]) [address] [place] [address] 61250 MCHC (RBC) [Mass/Vol] 35.1 g/dL Normal 32-36 [facility] Comment on above: Performed By: #### Kay CASTREJON CMP, 6872-11, #### [facility] ([id number]) [address] [place] [address] 85892 MCV (RBC) [Entitic vol] 88 fL Normal 80-100 [facility] Comment on above: Performed By: #### Kay CASTREJON CMP, 73, #### [facility] ([id number]) [address] [place] [address] 02894 Monocytes (Bld) [#/Vol] 0.6 10*3/uL Normal 0-0.9 [facility] Comment on above: Performed By: #### Kay CASTREJON CMP, 6872-11, #### [facility] ([id number]) [address] [place] [address] 80621 Monocytes/100 WBC (Bld) 6.4 % Normal [facility] Comment on above: Performed By: #### Kay CASTREJON, CMP, 6872-11, #### [facility] ([id number]) [address] [place] [address] 51745 Neutrophils/100 WBC (Bld) 53.8 % Normal [facility] Comment on above: Performed By: #### Kay CASTREJON CMP, 6872-11, #### [facility] ([id number]) [address] [place] [address] 08220 Platelet mean volume (Bld) [Entitic vol] 8.8 fL Normal 7-12 [facility] Comment on above: Performed By: #### Kay CASTREJON, CMP, 6872-11, #### [facility] ([id number]) [address] [place] [address] 33693 Platelets (Bld) [#/Vol] 235 10*3/uL Normal 150-450 [facility] Comment on above: Performed By: #### Kay CASTREJON, CMP, 6872-11, #### [facility] ([id number]) [address] [place] [address] 18817 RBC COUNT 5.17 X10E12/L Normal 4.10-5.70 [facility] Comment on above: Performed By: #### C BCA, CMP, 6873-4, 79261-0 #### [facility] ([id number]) [address] [place] [address] 72710 WBC (Bld) [#/Vol] 10.0 10*3/uL Normal 4.0-11.0 [facility] Comment on above: Performed By: #### C BCA, CMP, 73-, 96764-9 #### [facility] ([id number]) [address] [place] [address] 77728 COMPREHENSIVE METABOLIC PANE Mohan 08-29-2023 Albumin [Mass/Vol] 3.6 g/dL Normal 3.2-5.3 [facility] Comment on above: Performed By: #### C BCA, CMP, 73-, 13418-5 #### [facility] ([id number]) [address] [place] [address] 45682 ALP [Catalytic activity/Vol] 161 U/L High 39-130 [facility] Comment on above: Performed By: #### C BCA, CMP, 73-4, 77943-4 #### [facility] ([id number]) [address] [place] [address] 26765 ALT [Catalytic activity/Vol] 67 U/L High 0-40 [facility] Comment on above: Performed By: #### C BCA, CMP, 73-4, 06745-5 #### [facility] ([id number]) [address] [place] [address] 77683 Anion gap [Moles/Vol] 12 mmol/L Normal 5-15 [facility] Comment on above: Performed By: #### C BCA, CMP, 6873-, 33781-1 #### [facility] ([id number]) [address] [place] [address] 47505 AST [Catalytic activity/Vol] 50 U/L High 0-41 [facility] Comment on above: Performed By: #### C BCA, CMP, 73-, #### [facility] ([id number]) [address] [place] [address] 03935 Bilirubin [Mass/Vol] 1.0 mg/dL Normal 0.3-1.2 [facility] Comment on above: Performed By: #### C BCA, CMP, 73-, #### [facility] ([id number]) [address] [place] [address] 18639 Calcium [Mass/Vol] 8.6 mg/dL Normal 8.5-10.5 [facility] Comment on above: Performed By: #### C BCA, CMP, 6872-11, #### [facility] ([id number]) [address] [place] [address] 70430 Chloride [Moles/Vol] 95 mmol/L Low 98-109 [facility] Comment on above: Performed By: #### C BCA, CMP, 6872-11, 87454-7 #### [facility] ([id number]) [address] [place] [address] 08740 CO2 [Moles/Vol] 23 mmol/L Normal 22-32 [facility] Comment on above: Performed By: #### C BCA, CMP, 73-, 13164-9 #### [facility] ([id number]) [address] [place] [address] 90542 Creatinine [Mass/Vol] 0.89 mg/dL Normal 0.70-1.20 [facility] Comment on above: Result Comment: METH OD TRACEABLE TO IDMS STANDARD Performed By: #### C NASIM CASTREJON, 73, 88008-6 #### [facility] ([id number]) [address] [place] [address] 53816 eGFR (CKD-EPI) NON-RACE DEPENDENT >90 Normal >59 [facility] Comment on above: Result Comment: Reported eGFR is based on the CKD-EPI 2020 equation that does not use a race coefficient. Performed By: #### C NASIM CASTREJON, 6872-11, #### [facility] ([id number]) [address] [place] [address] 08611 Glucose [Mass/Vol] 537 mg/dL Critically high 65-99 [facility] Comment on above: Performed By: #### C NASIM CASTREJON, 6872-11, #### [facility] ([id number]) [address] [place] [address] 14310 Potassium [Moles/Vol] 3.8 mmol/L Normal 3.5-5.0 [facility] Comment on above: Performed By: #### C NASIM CASTREJON, 6872-11, 53510-4 #### [facility] ([id number]) [address] [place] [address] 96369 Protein [Mass/Vol] 6.2 g/dL Normal 6.0-8.0 [facility] Comment on above: Performed By: #### C NASIM CASTREJON, 6872-11, 94430-3 #### [facility] ([id number]) [address] [place] [address] 76509 Sodium [Moles/Vol] 130 mmol/L Low 134-146 [facility] Comment on above: Performed By: #### C NASIM CASTREJON, 6872-11, 37247-0 #### [facility] ([id number]) [address] [place] [address] 16920 Urea nitrogen [Mass/Vol] 11 mg/dL Normal 5-23 [facility] Comment on above: Performed By: #### C NASIM CASTREJON, 6873-4, 02901-1 #### [facility] ([id number]) [address] [place] [address] 35136 Glucose Glucometer (BldC) [M ass/Vol]on 08-29-2023 Glucose [Mass/Vol] 277 mg/dL High 65-99 [facility] Glucose [Mass/Vol] 323 mg/dL High 65-99 [facility] Glucose [Mass/Vol] 403 mg/dL Critically high 65-99 [facility] BEDSIDE GLUCOSE LAB >500 Critically high 65-99 [facility] Comment on above: Result Comment: SEE LAB RESULTS FOR CONFIRMATION MAGNESIUMon 08-29-2023 Magnesium [Mass/Vol] 2.2 mg/dL Normal 1.8-2.6 [facility] Comment on above: Performed By: #### C NASIM CASTREJON, 6873-4, 44145-1 #### [facility] ([id number]) [address] [place] [address] 22739 URN MACROSCOPIC NURon 2023 BILIRUBIN ESTEFANY Negative Normal NEG [facility] Comment on above: Performed By: #### N UM #### [facility] ([id number]) [address] [place] [address] 90657 BLOOD/HGB ESTEFANY Negative Normal NEG [facility] Comment on above: Performed By: #### N UM #### [facility] ([id number]) [address] [place] [address] 05273 GLUCOSE ESTEFANY >=1000 Abnormal NEG [facility] Comment on above: Performed By: #### N UM #### [facility] ([id number]) [address] [place] [address] 19219 KETONES ESTEFANY 40 mg/dL Abnormal NEG [facility] Comment on above: Performed By: #### N UM #### [facility] ([id number]) [address] [place] [address] [place] [address] LEUKOCYTE ESTERASE ESTEFANY Negative Normal NEG Pr [facility] Comment on above: Performed By: #### N UM #### [facility] ([id number]) [address] [place] [address] 28037 NITRITE ESTEFANY Negative Normal NEG [facility] Comment on above: Performed By: #### N UM #### [facility] ([id number]) [address] [place] [address] 36798 PH ESTEFANY 6.0 Normal 5.0-8.5 [facility] Comment on above: Performed By: #### N UM #### [facility] ([id number]) [address] [place] [address] 96105 PROTEIN ESTEFANY Negative Normal NEG [facility] Comment on above: Performed By: #### N UM #### [facility] ([id number]) [address] [place] [address] 91357 SPECIFIC GRAVITY ESTEFANY 1.010 Normal 1.003-1.035 [facility] Comment on above: Performed By: #### N UM #### [facility] ([id number]) [address] [place] [address] 29395 UROBILINOGEN ESTEFANY 0.2 eu/dL Normal <1.1 [facility] Comment on above: Performed By: #### N UM #### [facility] ([id number]) [address] [place] [address] 17353 VENOUS BLOOD GASon 4 PACHECO'S TEST Normal [facility] Comment on above: Performed By: #### V BG #### [facility] ([id number]) [address] [place] [address] 43210 BASE,DEFICIT 2.0 MMOL/L Normal 0.0-2.0 [facility] Comment on above: Performed By: #### V BG #### [facility] ([id number]) [address] [place] [address] 23399 Body temperature 98.6 [degF] Normal 37.0 [facility] Comment on above: Performed By: #### V BG #### [facility] ([id number]) [address] [place] [address] 55972 HCO3 (Bld) [Moles/Vol] 23.7 mmol/L Normal 20.0-24.0 [facility] Comment on above: Performed By: #### V BG #### [facility] ([id number]) [address] [place] [address] 86323 INSP. O2 CONC. 21 % Normal [facility] Comment on above: Performed By: #### V BG #### [facility] ([id number]) [address] [place] [address] 95658 Oxygen saturation in Blood 73.0 % Low >80.0 [facility] Comment on above: Performed By: #### V BG #### [facility] ([id number]) [address] [place] [address] 88269 OXYGEN SOURCE RoomAir Normal [facility] Comment on above: Performed By: #### V BG #### [facility] ([id number]) [address] [place] [address] 91451 PCO2, VENOUS 40.9 MMHG Normal 35-50 [facility] Comment on above: Performed By: #### V BG #### [facility] ([id number]) [address] [place] [address] 09992 PH, VENOUS 7.372 Normal 7.320-7.420 [facility] Comment on above: Performed By: #### V BG #### [facility] ([id number]) [address] [place] [address] 15904 PO2, VENOUS 40 MMHG Normal 30-50 [facility] Comment on above: Performed By: #### V BG #### [facility] ([id number]) [address] [place] [address] 80500 SAMPLE SITE N/A Normal [facility] Comment on above: Performed By: #### V BG #### [facility] ([id number]) [address] [place] [address] 14977 SAMPLE TYPE VENOUS Normal [facility] Comment on above: Performed By: #### V BG #### [facility] ([id number]) [address] [place] [address] 82023 XR HIP RIGHT (2-3 VIEWS)on 0 08-31-2019 XR HIP RIGHT (2-3 VIEWS) EXAMINATION: TWO XRAY VIEWS OF THE RIGHT HIP 08/31/2019 7:21 pm COMPARISON: None. HISTORY: ORDERING SYSTEM PROVIDED HISTORY: pain in buttock TECHNOLOGIST PROVIDED HISTORY: pain in buttock Reason for Exam: Pain in RT buttocks no known injury Acuity: Acute Type of Exam: Initial Additional signs and symptoms: Pain in RT buttocks no known injury FINDINGS: No acute fracture. No dislocation. Femoral head contour is maintained. No focal osseous abnormality. Soft tissue structures are unremarkable. IMPRESSION: Unremarkable right hip. Interpreted by: Keegan Meeks MD Signed by: Keegan Meeks MD 08/31/19 Final result Normal [facility] XR LUMBAR SPINE (2-3 VIEWS)o n 08-31-2019 XR LUMBAR SPINE (2-3 VIEWS) EXAMINATION: THREE XRAY VIEWS OF THE LUMBAR SPINE 08/31/2019 7:21 pm COMPARISON: None. HISTORY: ORDERING SYSTEM PROVIDED HISTORY: pain radiating into right buttock TECHNOLOGIST PROVIDED HISTORY: pain radiating into right buttock Reason for Exam: Pain in RT buttocks no known injury Acuity: Acute Type of Exam: Initial Additional signs and symptoms: Pain in RT buttocks no known injury FINDINGS: 5 [id number] lumbar type vertebral elements. Vertebral body height and alignment is maintained. Intervertebral disc spaces are maintained. Mild facet arthropathy in the lower lumbar spine. Soft tissue structures are unremarkable. SI joints are symmetric. Surgical clips in the right upper quadrant. IMPRESSION: Unremarkable lumbar spine. Interpreted by: Keegan Meeks MD Signed by: Keegan Meeks MD 08/31/19 Final result Normal [facility] Encounters Encounter Date Encounter Type Care Provider Facility Start: 04-01-2024 End: 04-01-2024 ambulatory [facility] Start: 03-25-2024 End: 04-20-2024 ambulatory SPEECH-LANGUAGE PATHOLOGIST [facility] Start: 03-17-2024 End: 03-17-2024 Emergency department patient visit NO PCP NO PCP [facility] Start: 02-10-2024 End: 02-11-2024 Emergency department patient visit VIANEY Ashely JOHANA [facility] Start: 12-20-2023 End: 12-20-2023 Emergency department patient visit NOT IN SYSTEM PCP [facility] Start: 12-12-2023 End: 12-12-2023 ambulatory [facility] Start: 11-19-2023 Telephone encounter [facility] Comment on above: STROKE REFERRAL Start: 11-15-2023 End: 11-16-2023 ambulatory NOT IN SYSTEM PCP [facility] Start: 11-15-2023 End: 11-17-2023 Emergency department patient visit SIMBA RODRIGUEZHMAN [facility] Start: 11-07-2023 End: 11-08-2023 Emergency department patient visit YUVAL ESCOTO [facility] Start: 10-01-2023 End: 10-02-2023 Emergency department patient visit JAYLA BROWN [facility] Start: 08-29-2023 End: 08-29-2023 Emergency department patient visit ALISA HART [facility] Start: 08-31-2019 End: 08-31-2019 Emergency department patient visit RALPH RAMIREZ [facility] Start: 02-01-2017 End: 02-01-2017 Ambulatory PATIENCE TOLEDO Facility:H1 Procedures Date Procedure Procedure Detail Performing Clinician Start: 04-01-2024 Follow-up visit Follow-up SKY URRUTIA Start: 08-31-2019 Radex spine lumbosac ral 2/3 views RALPH RAMIREZ Start: 08-31-2019 Radex hip unilateral with pelvis 2-3 views RALPH RAMIREZ Plan of Treatment Date Care Activity Detail Author Start: 11-15-2024 Adult BMI Screening Adult BMI Screening [facility] Start: 11-14-2024 Tobacco Screening Tobacco Screening [facility] Start: 04-20-2024 Influenza vaccination Influenza Vaccine [facility] Start: 1995 DTaP,Tdap and Td Vaccines (1 - Tdap) DTaP,Tdap and Td Vaccines (1 - Tdap) [facility] Start: 1994 Adult BMI Follow Up Plan Adult BMI Follow Up Plan [facility] Start: 1994 Diabetic foot examination Diabetic Foot Exam [facility] Start: 1988 Depression Screening Depression Screening [facility] Start: 1976 Glaucoma screening Diabetic Ophthalmology Exam [facility] Start: 1976 Tobacco Counseling Tobacco Counseling [facility] Start: 1976 Urine screening for protein Urine Microalbumin [facility] Payers Date Payer Category Payer Unknown [id number] 1975 Unknown [id number] 2.16.8 [id number] 1976 Unknown [id number] 2.16.8 40.1.662885.3.579.2.1286 1976 Unknown [id number] 2.16.8 40.1.397252.3.579.2.1286 1976 Unknown [id number] 2.16.8 40.1.452774.3.579.2.1286 1976 Unknown [id number] 2.16.8 40.1.853100.3.579.2.1286 1976 Unknown [id number] 2.16.8 40.1.545116.3.579.2.1286 1976 Unknown [id number] 2.16.8 40.1.257658.3.579.2.1286 1976 Unknown [id number] 2.16.8 40.1.222823.3.579.2.1286 1976 Unknown [id number] 2.16.8 40.1.729182.3.579.2.1286 1976 Unknown [id number] 2.16.8 40.1.028242.3.579.2.1285 1976 Unknown [id number] 2.16.8 40.1.336271.3.579.2.128 1976 Unknown [id number] 2.16.8 40.1.267299.3.579.2.128 1976 Unknown [id number] 2.16.8 40.1.560806.3.579.2.1285 1976 Unknown [id number] 2.16.8 40.1.071969.3.579.2.1285 1976 Unknown [id number] 2.16.8 40.1.436326.3.579.2.1285 1976 Unknown [id number] 2.16.8 40.1.399965.3.579.2.128 1976 Unknown [id number] 2.16.8 40.1.746451.3.579.2.1285 1976 Unknown [id number] 2.16.84 0.1.368035.3.579.2.1286 1959 Self-pay [id number] Social History Date Type Detail Facility Start: 08-29-2023 [facility] History of tobacco use Cigarette Smoker P [facility] Start: 08-29-2023 End: 11-15-2023 Cigarettes smoked current (pack per day) - Reported 0.5 [facility] Start: 08-29-2023 Tobacco use and exposure Smokeless tobacco non-user [facility] Start: 11-15-2023 Alcohol intake Current drinke r of alcohol (finding) [facility] Start: 11-15-2023 [facility] Ecociclusities [facility] Has the Prix[employer] threatened to shut off services in your home in past 12Mo No [facility] Are you now , , , , never or living with a partner? [facility] How often to you hav e a drink containing alcohol? Never [facility] How many standard drinks containing alcohol do you have on a typical day? Patient does not drink [facility] Do you feel stress - tense, restless, nervous, or anxious, or unable to sleep at night because your mind is troubled all the time - these days [OSQ] Only a little [facility] [email or web address] [facility] Start: 08-29-2023 Alcohol Comment rarely [facility] [employer] [facility] Start: 1976 Sex Assigned At Not on file [facility] Progress note 03-25-2024 Note Date & Type Note Facility 03-25-2024 Note Speech Scientific Informatics Project Leader ology Modified Barium Swallow Study (MBSS) Rx: NPO Consultation with physician for NPO tube feeds vs PO with comfort care goals. ENT consult to rule out vocal cord dysfunction as pt had a wet and gurgly vocal quality which he reported has been several years Speech/Dysphagia therapy to improve swallow function (the treating BUSINESS ACCOUNT SPECIALIST may determine when to repeat MBS) General Information Ordering Physician: Luis Daniel Palacios MD Date of Evaluation: 03/25/24 Type of Study: Initial MBS Diet Prior to this Study: Regular (Thin liquids) Reason for Referral Patient was referred for a Initial MBS to assess the efficiency of his swallow function, rule out aspiration and make recommendations regarding safe dietary consistencies, effective compensatory strategies, and safe eating environment. Pt arrived alone from home and when being walked back to radiology suite, had a notable wet and gurgly vocal quality (he reported he has had it for a very long time). He also reported he coughs/chokes during most meals on a daily basis. Pt's , Asha along with a friend who drove them to the appointment were in the car during exam, but were all educated after exam was completed. Previous medical history includes: CVA October 2023; DM II and long history of swallow difficulties. Consistencies Trialed Liquids: Honey and Lealman thick liquids via cup; thin liquids not attempted due to aspiration on the thick liquids Solids: puree (pudding) and whole vanilla wafer Oral Preparation / Oral Phase Oral Phase - Comment Oral Phase - Comment: The oral phase was mildly reduced due to reduced posterior propulsion resulting in piecemeal swallow for all consistencies trialed as well as premature spillage into the valleculae and pyriform sinuses. No oral stasis was noted at end of exam. Pharyngeal Phase Pharyngeal Phase Pharyngeal Phase: Impaired Pharyngeal Phase - Comment Pharyngeal Comment: The pharyngeal phase of the swallow was impaired with delayed swallow initiation of all food and liquid trials resulting in premature spillage and stasis into the valleculae and pyriform sinuses (the stasis became increasingly larger as exam went on). Reduced epiglottic movement was noted with the tilt as it did not tilt completely and then the retraction was mildly slow to recover for all consistencies trialed. Deep penetration to cord level was noted for trials of honey and nectar thick liquids as well as whole cookie with no cough reflex to clear- pt required multiple cues to complete a dry swallow. Mild aspiration was noted from subsequent spillage of the pharyngeal stasis into the laryngeal vestibule and trachea with no cough reflex noted. Even when pt was cued for a dry swallow, the pharyngeal stasis was not able to be cleared which places him at a very high risk for further aspiration (pt and his both commented that he coughs with meals at home for the past 3-4 years, but has become even worse after his CVA in October 2023). He had deep penetration to cord level with puree trials, but did not aspirate; however, since he was not able to clear the stasis in his pharynx, there is increased risk for aspiration due to delayed swallow and overall weak swallow mechanics. Cervical Esophageal Phase Cricopharyngeal Phase Cricopharyngeal Phase: Within Functional Limits Cricopharyngeal Phase - Comment Cricopharyngeal Comment: Unremarkable Recommendations/Treatment Recommendations/Treat Recommendations Comment: NPO due to chronic deep penetration as well as mild aspiration with honey and nectar liquids, cookie and high risk for aspiration with puree as pt fatigues while eating; 2. ENT consult due to long h/o wet gurgly vocal quality; and Speech therapy to work on dysphagia goals. Diet Recommendation: NPO Summary Impressions Impressions: Oropharyngeal Dysphagia Prognosis Prognosis for Safe Diet Advancement: Fair Barriers to Reach Goals: Time post onset Barriers/Prognosis Comment: Pt arrived for [facility] with a wet and gurgly vocal quality and reported he has had the wet sound and choking/coughing while eating for 3-4 years if not longer. In October 2023 he had a CVA which he reported he did not receive dysphagia therapy. Individuals Consulted Consulted and Agree with Results and Recommendations: Patient, Family member Family Member Consulted: Pt's , Asha - was verbally educated re: results and recommendations; however, pt was able to be shown the video results of his swallow function ( was in car with the friend who drove them for the MBS) This life insurance underwriter spoke to all of them in the car to ensure comprehension of the results and rcommendations. Bindu Pickering, [facility]-BUSINESS ACCOUNT SPECIALIST [phone] [facility] Note 11-19-2023 Telephone Encounter - Valery Kumar - 11/19/2023 9:10 AM EDTTelephone Encounter - Anaid Reynaga - 11/19/2023 9:10 AM EDT Note Date & Type Note Facility 11-19-2023 Miscellaneous Notes Formattin g of this note might be different from the original. Workqueue referral for stroke clinic New patient referral received. Dx: TIA (transient ischemic attack) [G45.9] Cocaine use disorder (CMS-HCC) [F14.10] Migraine without status migrainosus, not intractable, unspecified migraine type [G43.909] Referred by: Yahaira Hdez APRN-CRISS Referred to: Please contact patient to schedule from referral if they should be seen by the stroke clinic or route back to scheduling staff if patient should be seen by general neurology, Thanks! PLEASE REVIEW PLAN OVER THE PHONE AND ADVISE PATIENT TO BRING UPDATED INSURANCE INFORMATION TO THEIR NEW PATIENT APPOINTMENT 1st attempt: Metal Control Worker contacted patient and informed them that we have received a request to be seen in our clinic for a new patient appointment. Patient stated that they will contact our clinic later to schedule. Metal Control Worker informed patient that their referral is valid for up to one year and can schedule when they are able - patient stated understanding. documented in this encounter [facility] Telephone encounter Note 11-19-2023 Telephone Encounter - Valery José - 11/19/2023 9:10 AM EDT Note Date & Type Note Facility 11-19-2023 Telephone encount er Note Workqueue referral for stroke clinic New patient referral received. Dx: TIA (transient ischemic attack) [G45.9] Cocaine use disorder (CMS-HCC) [F14.10] Migraine without status migrainosus, not intractable, unspecified migraine type [G43.909] Referred by: Yahaira Hdez APRN-CRISS Referred to: Please contact patient to schedule from referral if they should be seen by the stroke clinic or route back to scheduling staff if patient should be seen by general neurology, Thanks! PLEASE REVIEW PLAN OVER THE PHONE AND ADVISE PATIENT TO BRING UPDATED INSURANCE INFORMATION TO THEIR NEW PATIENT APPOINTMENT [facility] Telephone encounter Note 11-19-2023 Telephone Encounter - Anaid Reynaga - 11/19/2023 9:10 AM EDT Note Date & Type Note Facility 11-19-2023 Telephone encount er Note 1st attempt: Metal Control Worker contacted patient and informed them that we have received a request to be seen in our clinic for a new patient appointment. Patient stated that they will contact our clinic later to schedule. Metal Control Worker informed patient that their referral is valid for up to one year and can schedule when they are able - patient stated understanding. [facility] Clinical Note 10-01-2023 Note Date & Type Note Facility 10-01-2023 Note XR ELBOW RT MIN 3 VW S Procedure: Right elbow radiographs performed Number of views:3 History:Pain Comparison:None Findings: There is no fracture, dislocation, effusion, or destructive lesion. There is a large olecranon spur Impression: No acute findings. Finalized by Erin Patel DO on 10/01/2023 5:39 PM [facility] Instructions Note Date & Type Note Facility Instructions Not on filedocumented in this en counter [facility] Summary Purpose Family History No Family History Records FoundNo Family History Records FoundNo Family History Records FoundNo Family History Records Found Advance Directives No Advanced Directives Records FoundLatest Code Status on File Code Status Date Activated Date Inactivated Comments Full Code 11/15/2023 9:54 AM 11/16/2023 1:08 PM Additional Source Comments (unrecognized sect ion and content) No Status Records FoundNo Status Records FoundNo Status Records FoundNo Status Records Found INFORMATION SOURCE (unrecogn ized section and content) DATE CREATED AUTHOR 02/13/2018 [facility] DATE CREATED AUTHOR AUTHOR'S ORGANIZ ATION 08/31/2019 [facility] DATE CREATED AUTHOR AUTHOR'S ORGANIZ ATION 03/27/2024 [facility] DATE CREATED AUTHOR AUTHOR'S ORGANIZ ATION 04/20/2024 [facility] Reason for Visit (unrecogniz ed section and content) Reason Onset Date Comments STROKE REFERRAL 11/19/2023 Care Teams (unrecognized sec tion and content) [employer] Relationship Specialty Start Date End Date Pcp, [place] [address] PCP - General Family Medicine 11/15/23 FOR RECORDS PERTAINING TO PATIENTS WHO ARE OR HAVE BEEN ENROLLED IN A CHEMICAL DEPENDENCY/SUBSTANCEABUSE PROGRAM, SOME INFORMATION MAY BE OMITTED. This clinical summary was aggregated from multiple sources. Caution should be exercised in using it in the provision of clinical care. This summary normalizes information from multiple sources, and as a consequence, information in this document may materially change the coding, format and clinical context of patient data. In addition, data may be omitted in some cases. CLINICAL DECISIONS SHOULD BE BASED ON THE PRIMARY CLINICAL RECORDS. [facility] [employer] [facility]. provides no warranty or guarantee of the accuracy or completeness of information in this document.
--- NOTE | 2024-10-01 16:34 | ED.GENADUL1 ---
HPI HPI - General Adult General Chief complaint: Urogenital-Male Stated complaint: TESTUCULAR PAIN Time Seen by Provider: 10/01/24 16:11 Source: patient Mode of arrival: walk-in History of Present Illness HPI narrative: Patient presents to ED complaining of right testicular pain. It has been going on for about a week. He said he has had lower abdominal pain suprapubic pain and right testicular pain. He has noticed some swelling of the right testicle as well. Patient states he had a right hernia repair about 20 years ago. He said it has been a little bit painful to urinate but no pain with bowel movements. No fevers no nausea vomiting. Patient denies any trauma to the testicle. He denies any abnormal discharge from the penis. Patient states this started sort of gradual but the pain seems to be worsening. Patient is diabetic. Related Data Home Medications ?Medication ?Instructions ?Recorded ?Confirmed atorvastatin 40 mg tablet 40 mg PO DAILY 03/19/24 03/19/24 empagliflozin 25 mg tablet 25 mg PO DAILY 03/19/24 03/19/24 ergocalciferol (vitamin D2) 1,250 1,250 mcg PO QDAY 03/19/24 03/19/24 mcg (50,000 unit) capsule (Drisdol) gabapentin 100 mg capsule 100 mg PO DAILY 03/19/24 03/19/24 glipizide 5 mg tablet 5 mg PO DAILY 03/19/24 03/19/24 lisinopril 40 mg tablet 40 mg PO DAILY 03/19/24 03/19/24 metformin 500 mg tablet 1,000 mg PO BID 03/19/24 03/19/24 omeprazole 20 mg capsule,delayed 20 mg PO DAILY 03/19/24 03/19/24 release Previous Rx's ?Medication ?Instructions ?Recorded bacitracin 500 unit/gram topical 1 applic topical BID #30 grams 03/19/24 ointment oxycodone-acetaminophen 5 mg-325 1 tab PO Q6H PRN pain #12 tabs 03/19/24 mg tablet (Percocet) doxycycline hyclate 100 mg capsule 100 mg PO BID 10 days #20 caps 10/01/24 hydrocodone 5 mg-acetaminophen 325 1 tab PO Q6H PRN pain #14 tabs 10/01/24 mg tablet Allergies Allergy/AdvReac Type Severity Reaction Status Date / Time latex Allergy Intermediate Hives Verified 11/08/23 15:11 Opioid HPI Opioid Management Most Recent Opioid Data: Last Pain Scale 10 10/01/24 17:29 10/01/24 Last MAR Pain Assessment 10/01/24 17:29 Review of Systems ROS Status of ROS 10 or more systems reviewed and unremarkable except as noted in history and below [facility] Social History Little interest or pleasure in doing things: not at all Feeling down, depressed, or hopeless: not at all Exam Narrative Exam Narrative: Time Seen: [] Vital Signs: [Per nurse's notes.] General: [Alert] Skin: [Warm, dry, no rash.] Head: [Normocephalic, atraumatic.] Neck: [Supple, trachea midline.] Eye: [Pupils are equal, round and reactive to light, extraocular movements are intact, normal conjunctiva.] Ears, nose, mouth and throat: oral mucosa moist. Cardiovascular: [Regular rate and rhythm, no murmur.] Respiratory: [Lungs are clear to auscultation, respirations are non-labored, breath sounds are equal.] Chest wall: [No tenderness, no deformity.] Gastrointestinal: [Soft, suprapubic tenderness, right lower quadrant tenderness right inguinal tenderness, non distended, normal bowel sounds. Right testicular swelling mild erythema and diffuse tenderness. Mild tenderness with palpating the perineum as well. No evidence of abscess MSK: 5 out of 5 muscle strength x 4 extremities no calf pain or edema Psychiatric: [Cooperative, appropriate mood & affect.] Neurological: [Alert and oriented to person, place, time, and situation, no focal neurological deficit observed.] Constitutional Vital Signs, click to edit/add: Last Vital Signs Temp 97.7 F 10/01/24 16:18 Pulse 66 10/01/24 18:06 Resp 18 10/01/24 18:06 BP 108/69 10/01/24 18:06 Pulse Ox 97 10/01/24 18:06 O2 Del Method Room Air 10/01/24 16:18 Course Vital Signs Vital signs: Vital Signs Temperature 97.7 F 10/01/24 16:18 Pulse Rate 81 10/01/24 16:18 Respiratory Rate 16 10/01/24 16:18 Blood Pressure 102/72 10/01/24 16:18 Pulse Oximetry 97 10/01/24 16:18 Oxygen Delivery Method Room Air 10/01/24 16:18 Temperature 97.7 F 10/01/24 16:18 Pulse Rate 66 10/01/24 18:06 Respiratory Rate 18 10/01/24 18:06 Blood Pressure 108/69 10/01/24 18:06 Pulse Oximetry 97 10/01/24 18:06 Oxygen Delivery Method Room Air 10/01/24 16:18 Medical Decision Making MDM Narrative Medical decision making narrative: CT scan negative for acute findings. Right hydrocele. Ultrasound shows no testicular torsion. Ultrasound is positive for epididymitis. Patient denies any STD risk. Patient will be given Rocephin here in ED and sent home on 10 days of doxycycline. Patient is to follow-up with urologist if this is not improving or certainly return to ED if worsening pain fevers vomiting or any other concerns. Patient is comfortable with care plan for home and will return if anything worsens. Differential Diagnosis Differential Diagnosis: Epididymitis testicular torsion hernia UTI Lab Data Lab results reviewed: Yes I reviewed the patient's lab results Labs: Lab Results 10/01/24 10/01/24 Range/Units 16:30 16:35 WBC 9.0 (4.0-11.0) 10^3/uL RBC 5.13 (4.70-6.10) 10^6/uL Hgb 15.1 (14.0-18.0) g/dL Hct 46.5 (42.0-54.0) % MCV 90.6 (80.0-94.0) fL MCH 29.4 (25.9-34.0) pg MCHC 32.5 (29.9-35.2) g/dL RDW 14.6 (11.0-15.0) % Plt Count 244 (150-450) 10^3/uL MPV 9.4 L (9.5-13.5) fL Neut % (Auto) 57.8 (43.0-75.0) % Lymph % (Auto) 30.3 (20.5-60.0) % Hitchcock % (Auto) 8.6 (1.7-12.0) % Eos % (Auto) 2.8 (0.9-7.0) % Baso % (Auto) 0.4 (0.2-2.0) % Neut # (Auto) 5.2 (1.4-6.5) 10^3/uL Lymph # (Auto) 2.7 (1.2-3.8) 10^3/uL Hitchcock # (Auto) 0.8 (0.3-0.8) 10^3/uL Eos # (Auto) 0.3 (0.0-0.7) 10^3/uL Baso # (Auto) 0.0 (0.0-0.1) 10^3/uL Abs Immat Gran (auto) 0.01 (0.00-0.03) 10^3/uL Imm/Tot Granulo (auto) 0.1 (0.0-0.5) % Sodium 143 (136-145) mmol/L Potassium 4.4 (3.5-5.1) mmol/L Chloride 107 (98-107) mmol/L Carbon Dioxide 32.7 H (21.0-32.0) mmol/L Anion Gap 7.7 BUN 12.0 (7.0-18.0) mg/dL Creatinine 1.09 (0.70-1.30) mg/dL Est GFR ( Amer) >60 (>=60 mL/min/1.73m^2) Est GFR (Non-Af Amer) >60 (>=60 mL/min/1.73m^2) BUN/Creatinine Ratio 11.0 Glucose 149 H (74-106) mg/dL Calcium 9.0 (8.5-10.1) mg/dL Total Bilirubin 0.4 (0.2-1.0) mg/dL AST 19 (15-37) U/L ALT 26 (16-63) U/L Alkaline Phosphatase 83 (46-116) U/L Total Protein 6.6 (6.4-8.2) g/dL Albumin 3.5 (3.4-5.0) g/dL Globulin 3.1 g/dL Albumin/Globulin Ratio 1.1 Urine Color Lt. yellow (YELLOW) Urine Clarity Clear (CLEAR) Urine pH 8.0 (5.0-9.0) Ur Specific Egan 1.015 (1.005-1.025) Urine Protein Negative (NEG/TRACE) mg/dL Urine Glucose (UA) >=1000 A (NEGATIVE) mg/dL Urine Ketones Negative (NEGATIVE) mg/dL Urine Occult Blood Negative (NEGATIVE) Urine Nitrite Negative (NEGATIVE) Urine Bilirubin Negative (NEGATIVE) Urine Urobilinogen 0.2 (0.2-1.0) EU/dL Ur Leukocyte Esterase Negative (NEGATIVE) Imaging Data CT scan - abdomen: Radiologist's impression: ITS Impressions Scrotum Ultrasound 10/01/24 16:26 IMPRESSION: 1. Findings are suspicious for right epididymitis. 2. Unremarkable testes. 3. Small to moderate-sized right hydrocele. 4. Mild right scrotal wall thickening, which is nonspecific. Electronically authenticated by: RALPH DIETZ Date: 10/01/2024 18:18 Abdomen/Pelvis CT 10/01/24 17:48 IMPRESSION: 1. No acute abnormality in the abdomen or pelvis. Normal appendix. No obstructive uropathy. 2. Small right hydrocele. Electronically authenticated by: RALPH DIETZ Date: 10/01/2024 18:13 Discharge Plan Discharge Chief Complaint: Urogenital-Male Clinical Impression: Epididymitis Patient Disposition: Home, Self-Care Time of Disposition Decision: 18:29 Condition: Good Mode of Transportation: Private Vehicle Prescriptions / Home Meds: New doxycycline hyclate 100 mg capsule 100 mg PO BID 10 Days Qty: 20 0RF hydrocodone-acetaminophen 5-325 mg tablet 1 tab PO Q6H PRN (Reason: pain) Qty: 14 0RF No Action metformin 500 mg tablet 1,000 mg PO BID gabapentin 100 mg capsule 100 mg PO DAILY omeprazole 20 mg capsule,delayed release(DR/EC) 20 mg PO DAILY ergocalciferol (vitamin D2) [Drisdol] 1,250 mcg (50,000 unit) capsule 1,250 mcg PO QDAY lisinopril 40 mg tablet 40 mg PO DAILY atorvastatin 40 mg tablet 40 mg PO DAILY glipizide 5 mg tablet 5 mg PO DAILY empagliflozin 25 mg tablet 25 mg PO DAILY bacitracin 500 unit/gram ointment 1 applic topical BID Qty: 30 0RF oxycodone-acetaminophen [Percocet] 5-325 mg tablet 1 tab PO Q6H PRN (Reason: pain) Qty: 12 0RF Print Language: Cambodian Instructions: Epididymitis (ED) Referrals: Leonila Garcia MD [Physician] - 1 week Physician,Non-Staff, [Primary Care Provider] - 1 week
[2024-10-01 16:44] LABS: Basophils Percent Auto 0.4 % (0.2-2.0); Eosinophils Absolute Auto 0.3 10^3/uL (0.0-0.7); Eosinophils Percent Auto 2.8 % (0.9-7.0); Hematocrit 46.5 % (42.0-54.0); Hemoglobin 15.1 g/dL (14.0-18.0); Immature Granulocytes Abs Auto 0.01 10^3/uL (0.00-0.03); Immature Granulocytes Pct Auto 0.1 % (0.0-0.5); Lymphocytes Absolute Auto 2.7 10^3/uL (1.2-3.8); Lymphocytes Percent Auto 30.3 % (20.5-60.0); Mean Corpuscular HGB Conc 32.5 g/dL (29.9-35.2); Mean Corpuscular Hemoglobin 29.4 pg (25.9-34.0); Mean Corpuscular Volume 90.6 fL (80.0-94.0); Mean Platelet Volume 9.4 fL (9.5-13.5); Monocytes Absolute Auto 0.8 10^3/uL (0.3-0.8); Monocytes Percent Auto 8.6 % (1.7-12.0); Neutrophils Absolute Auto 5.2 10^3/uL (1.4-6.5); Neutrophils Percent Auto 57.8 % (43.0-75.0); Platelet Count 244 10^3/uL (150-450); Red Blood Count 5.13 10^6/uL (4.70-6.10); Red Cell Distribution Width 14.6 % (11.0-15.0)
[2024-10-01 16:45] LABS: Bilirubin Urine NEGATIVE (NEGATIVE); Blood Urine NEGATIVE (NEGATIVE); Clarity Urine CLEAR (CLEAR); Color Urine LT. YELLOW (YELLOW); Glucose Urine UA >=1000 mg/dL (NEGATIVE); Ketones Urine NEGATIVE (NEGATIVE); Leukocyte Esterase Urine NEGATIVE (NEGATIVE); Nitrite Urine NEGATIVE (NEGATIVE); Protein Urine NEGATIVE (NEG/TRACE); Specific Gravity Urine 1.015 (1.005-1.025); Urobilinogen Urine 0.2 EU/dL (0.2-1.0)
[2024-10-01 16:46] LABS: Urine Microscopic Indicated NO
[2024-10-01 16:58] LABS: Alanine Aminotransferase 26 U/L (16-63); Albumin Globulin Ratio 1.1; Albumin Level 3.5 g/dL (3.4-5.0); Alkaline Phosphatase 83 U/L (46-116); Anion Gap 7.7; Aspartate Amino Transferase 19 U/L (15-37); Bilirubin Total 0.4 mg/dL (0.2-1.0); Carbon Dioxide 32.7 mmol/L (21.0-32.0); Chloride 107 mmol/L (98-107); Estimated GFR (African America >60 (>=60 mL/min/1.73m^2); Estimated GFR (Non-African Ame >60 (>=60 mL/min/1.73m^2); Globulin 3.1 g/dL; Glucose 149 mg/dL (74-106); Potassium 4.4 mmol/L (3.5-5.1); Sodium 143 mmol/L (136-145); Total Protein 6.6 g/dL (6.4-8.2)
[2024-10-01] MEDS: KETOROLAC TROMETHAMINE 30 MG/ML VIAL IVP (17:29)
--- NOTE | 2024-10-01 17:48 | CT_ITS ---
The [address] [address] Patient Name: SEBAS GARCIA MRN: [id number] date: 1975 Sex: M Assigned Patient Location: ER Current Patient Location: ER Accession/Order Number: [id number] Exam Date: 10/01/2024 17:40 Report Date: 10/01/2024 18:13 At the request of: ERIK RASMUSSEN Procedure: CT abdomen pelvis w con CT ABDOMEN/PELVIS WITH IV CONTRAST. INDICATION: RLQ pain. COMPARISON: There are no other studies available for comparison. TECHNIQUE: Contiguous axial images were obtained from the lung bases to the pelvic floor following the intravenous administration of contrast. Coronal and sagittal reformations are provided. FINDINGS: LOWER LUNGS: Clear. LIVER/BILIARY TREE: No mass. No intrahepatic ductal dilatation. GALLBLADDER: Status post cholecystectomy.. CBD: Normal CBD. SPLEEN: Normal in size. PANCREAS: No acute findings. No peripancreatic fluid or inflammation. No pancreatic duct dilatation. No discrete mass. ADRENALS: Normal. KIDNEYS: No hydronephrosis. No radiopaque calculus. STOMACH AND BOWEL: There are 2 radiopaque structures in the lumen of the stomach measuring up to 1.3 cm. No dilated bowel loops. Decompressed colon. APPENDIX: Normal appendix. PERITONEAL CAVITY: No fluid. No fat stranding. ABDOMINAL WALL: No subcutaneous stranding. No subcutaneous fluid collection. LYMPH NODES: No mesenteric or retroperitoneal lymphadenopathy by CT criteria. ABDOMINAL AORTA: No aneurysm. PELVIS: Small right hydrocele. MUSCULOSKELETAL: No acute osseous abnormality. CT/CT abdomen pelvis w con IMPRESSION: 1. No acute abnormality in the abdomen or pelvis. Normal appendix. No obstructive uropathy. 2. Small right hydrocele. Electronically authenticated by: RALPH DIETZ Date: 10/01/2024 18:13
[2024-10-01 18:06] VITALS: BP 108/69; PULSE 66; O2SAT 97
[2024-10-01] MEDS: MORPHINE SULFATE 4 MG/ML VIAL IV (18:12)
[2024-10-01] MEDS: CEFTRIAXONE 1,000 MG in 0.9 % SODIUM CHLORIDE 50 ML 100 MG IV (18:43)
[2024-10-01 19:21] VITALS: BP 107/55; PULSE 68; O2SAT 100
== END 2024-10-01 19:22 | disposition home or self-care (01) ==
PROVIDERS: Emergency Provider Emergency Medicine
DX: N45.1 Epididymitis (principal)
CPT/HCPCS: 36415; 74177; 76870; 80053; 81003; 85025; 93976; 96365; 96375; 99285; J0696; J1885; J2270; Q9967